=== PATIENT | female | born 1980 | race Caucasian/White ===

== ENCOUNTER 2019-02-14 00:39 | Emergency (ER) | payer SELFPAY ==
[~2019-02-14] VITALS: Ht 175.3 cm; Wt 125.5 kg
[2019-02-14 00:40] VITALS: BP 177/92
[2019-02-14] MEDS ORDERED: LIDOCAINE W/EPINEPHRINE 1% 20ML VIAL SC ONE (01:15)
[2019-02-14] MEDS ORDERED: BUPIVACAINE HCL 0.5% 10 ML VIAL SC ONE (01:15)
[2019-02-14] MEDS ORDERED: CETACAINE SPRAY 5GM TOP ONE (01:15)
[2019-02-14] MEDS ORDERED: PERC5TAB12 PO (01:26)
[2019-02-14] MEDS ORDERED: OXYCODONE/APAP 5MG/325MG(BULK FOR ED) 1 TABLET PO ONE (01:30)
== END 2019-02-14 01:35 | disposition home or self-care (01) ==
LOC: M ED 00:39
DX: S02.5XXA Fracture of tooth (traumatic), initial encounter for closed fracture (principal); Y92.9 Unspecified place or not applicable; Y93.9 Activity, unspecified; Z88.1 Allergy status to other antibiotic agents

== ENCOUNTER 2019-03-12 02:42 | Emergency (ER) | payer OTHER ==
[~2019-03-12] VITALS: Ht 172.7 cm; Wt 122.7 kg
[~2019-03-12 02:42] MED LIST: PERC5TAB12 PO
[2019-03-12] MEDS ORDERED: IBUP1TAB6 PO (02:47)
[2019-03-12] MEDS ORDERED: NAPR220C24 PO (02:47)
[2019-03-12] MEDS ORDERED: KETOROLAC 60 MG/2 ML VIAL (J1885) IM ONE (03:30)
[2019-03-12] MEDS ORDERED: KETO10TAB PO (04:18)
[2019-03-12 04:27] VITALS: BP 131/69
--- NOTE | 2019-03-12 07:56 | REP ---
Left knee five views: There are no comparisons. There is mild osteoarthritis in the medial compartment. Mineralization and joint spaces are otherwise unremarkable. There are no calcifications. There is an effusion in the suprapatellar pouch. Impression: Suprapatellar effusion. Mild medial compartment osteoarthritis. Electronically Signed by Royal Phan MD 03/12/2019 07:48 A
== END 2019-03-12 04:29 | disposition home or self-care (01) ==
LOC: M ED 02:42
DX: M94.8X6 Other specified disorders of cartilage, lower leg (principal); M25.462 Effusion, left knee; X50.1XXA Overexertion from prolonged static or awkward postures, initial encounter; Y92.89 Other specified places as the place of occurrence of the external cause; E66.01 Morbid (severe) obesity due to excess calories; Z88.1 Allergy status to other antibiotic agents; Z79.1 Long term (current) use of non-steroidal anti-inflammatories (NSAID)
CPT/HCPCS: 73564; 96372; 99284; J1885

== ENCOUNTER 2019-08-21 21:54 | Emergency (ER) | payer OTHER, SELFPAY ==
[~2019-08-21] VITALS: Ht 172.7 cm; Wt 122.7 kg
[2019-08-21 21:54] VITALS: BP 180/93
[~2019-08-21 21:54] MED LIST changes: +IBUP1TAB6 PO; +KETO10TAB PO; +NAPR220C24 PO
[2019-08-21] MEDS ORDERED: ACET-683 PO (22:01)
[2019-08-21] MEDS ORDERED: NS 1,000 ML IV ONE (22:15)
[2019-08-21] MEDS ORDERED: ONDANSETRON 4MG/2ML VIAL (J2405) IV ONE (22:15)
[2019-08-21 22:33] LABS: URINE PREG TEST NEGATIVE (NEGATIVE)
[2019-08-21 22:42] LABS: BASO # 0.1 10^3/uL (0.0-0.2); BASO % 0.7 % (0.0-1.0); EOS # 0.2 10^3/uL (0.0-0.5); HEMOGLOBIN 12.3 g/dl (12.0-15.5); LYMPH % 28.1 % (24.0-44.0); MEAN CORPUSCULAR HEMOGLOBIN 29.3 pg (27.0-33.0); MEAN CORPUSCULAR HGB CONC 32.4 g/dl (32.0-36.5); MEAN CORPUSCULAR VOLUME 90.5 fl (80.0-96.0); MONO # 0.5 10^3/uL (0.0-0.8); MONO % 7.6 % (0.0-5.0); NEUTROPHILS # 4.2 10^3/uL (1.5-8.5); NEUTROPHILS % 60.3 % (36.0-66.0); PLATELET COUNT, AUTOMATED 222 10^3/uL (150-450)
[2019-08-21] MEDS ORDERED: KETOROLAC 30 MG/ML VIAL (J1885) IV ONE (23:00)
--- NOTE | 2019-08-21 23:09 | REPVR ---
PROCEDURE INFORMATION: Exam: US Pelvis Complete, Transabdominal and US Pelvis, Transvaginal Exam date and time: 08/21/2019 10:52 PM Age: 39 years old Clinical history: Pelvic pain; Additional info: Llq pain R/O ovarian torsion TECHNIQUE: Imaging protocol: Real-time transabdominal and transvaginal pelvic ultrasound (complete) with image documentation. Transvaginal imaging was used for better evaluation of the endometrium and adnexa. COMPARISON: No relevant prior studies available. FINDINGS: Uterus/cervix: Uterus measures 10.5 x 4.7 x 7 cm. Endometrial echocomplex measures 10.6 mm consistent with menstrual status. Right adnexa: Right ovary not visualized either transabdominally or vaginally to overlying bowel gas. Left adnexa: Left ovary measures 4 x 2.8 x 2.7 cm. No mass demonstrated. Resistive index 0.64. Normal flow. Free fluid: None. Bladder: Normal. IMPRESSION: Right ovary not visualized. The left ovary without evidence of torsion or mass. Electronically signed by: James Andujar On 08/21/2019 23:08:54 PM
[2019-08-21 23:11] LABS: ALBUMIN 3.6 GM/DL (3.2-5.2); ALT/SGPT 51 U/L (12-78); BILIRUBIN,DIRECT 0.1 MG/DL (0.0-0.2); BILIRUBIN,TOTAL 0.4 MG/DL (0.2-1.0); BLOOD UREA NITROGEN 17 MG/DL (7-18); CALCIUM LEVEL 8.3 MG/DL (8.5-10.1); CARBON DIOXIDE LEVEL 26 MEQ/L (21-32); CHLORIDE LEVEL 110 MEQ/L (98-107); CREATININE FOR GFR 0.92 MG/DL (0.55-1.30); GLOMERULAR FILTRATION RATE > 60.0 (>60); GLUCOSE, FASTING 125 MG/DL (70-100); LIPASE 209 U/L (73-393); POTASSIUM SERUM 3.9 MEQ/L (3.5-5.1); SODIUM LEVEL 141 MEQ/L (136-145); TOTAL PROTEIN 7.3 GM/DL (6.4-8.2)
--- NOTE | 2019-08-21 23:16 | REPVR ---
PROCEDURE INFORMATION: Exam: CT Abdomen And Pelvis Without Contrast Exam date and time: 08/21/2019 10:53 PM Age: 39 years old Clinical history: Abdominal pain; Flank; Left; Additional info: L flank pain R/O urolithiasis TECHNIQUE: Imaging protocol: Computed tomography of the abdomen and pelvis without contrast. Radiation optimization: All CT scans at this facility use at least one of these dose optimization techniques: automated exposure control; mA and/or kV adjustment per patient size (includes targeted exams where dose is matched to clinical indication); or iterative reconstruction. 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 No followup suggested as these are overwhelmingly statistically likely to be benign granulomas. Liver: Normal. No mass. Gallbladder and bile ducts: There has been a cholecystectomy. Pancreas: Normal. No ductal dilation. Spleen: Normal. No splenomegaly. Adrenals: There is a focal hypodense mass in the right adrenal gland measuring 1.6 cm., consistent in appearance and density with a benign adrenal adenoma. Kidneys and ureters: Normal. No hydronephrosis. Stomach and bowel: Unremarkable. No obstruction. No mucosal thickening. Appendix: No evidence of appendicitis. Intraperitoneal space: Unremarkable. No free air. No significant fluid collection. Vasculature: Unremarkable. No abdominal aortic aneurysm. Lymph nodes: Unremarkable. No enlarged lymph nodes. Bladder: Unremarkable as visualized. Reproductive: Normal ovaries. Small calcification in the anterior uterine body likely represents a vascular calcification or small calcified fibroid. Otherwise normal uterus. Bones/joints: Mild to moderate central spinal stenosis L4-5. Soft tissues: Unremarkable. IMPRESSION: 1. There has been a cholecystectomy. 2. There is a focal hypodense mass in the right adrenal gland measuring 1.6 cm., consistent in appearance and density with a benign adrenal adenoma. 3. Normal ovaries. Electronically signed by: James Andujar On 08/21/2019 23:16:31 PM
[2019-08-21] MEDS ORDERED: OXYCODONE/APAP 5MG/325MG(BULK FOR ED) 1 TABLET PO ONE (23:45)
[2019-08-22 00:01] LABS: CHLAMYDIA DNA AMPLIFICATION NEGATIVE (NEGATIVE); GC DNA AMPLIFICATION NEGATIVE (NEGATIVE)
--- NOTE | 2019-08-23 13:46 | ED PDOC ---
Post-Departure Follow-Up vanessa price faxed formal report of ct abd/p for fu Nik Edward MD Aug 23, 2019 13:46
== END 2019-08-22 00:46 | disposition home or self-care (01) ==
LOC: M ED 21:54
DX: R80.9 Proteinuria, unspecified (principal); E27.9 Disorder of adrenal gland, unspecified; E83.51 Hypocalcemia; R79.89 Other specified abnormal findings of blood chemistry; I10 Essential (primary) hypertension; Z87.442 Personal history of urinary calculi; Z88.1 Allergy status to other antibiotic agents
CPT/HCPCS: 74176; 76830; 76856; 80048; 80076; 81001; 83690; 84703; 85025; 87661; 93976; 96361; 96374; 96375; 99283; J1885; J2405